=== PATIENT | female | born 1965 | race Caucasian/White ===

== ENCOUNTER 2020-04-21 12:09 | Emergency (ER) | payer OTHER, SELFPAY ==
[2020-04-21 12:15] VITALS: BP 167/76; PULSE 61; RESP 18; TEMP 37; O2SAT 98; BMI 34.8
--- NOTE | 2020-04-21 12:23 | DI.RAD.S_ITS ---
PROCEDURE: XR KNEE LT 3V INDICATIONS: left knee swollen and pain after leaning on it TECHNIQUE: 3 views of the knee were acquired. COMPARISON: None. FINDINGS: Bones: No fractures or dislocations. There is mild osteophytosis. No suspicious bony lesions. Soft tissues: There is a moderate joint effusion. No suspicious soft tissue calcifications. IMPRESSION: 1. No fracture or dislocation. 2. Moderate size joint effusion. Dictated by: Rios Sheets M.D. on 04/21/2020 at 14:41 Approved by: Rios Sheets M.D. on 04/21/2020 at 14:43
--- NOTE | 2020-04-21 12:39 | PC.NURSE ---
pt back from xray, in waiting room
[2020-04-21] MEDS: KETOROLAC 60 MG/2 ML VIAL 30 MG IM (17:36)
[2020-04-21 17:42] VITALS: PULSE 70
[2020-04-21 17:48] VITALS: BP 162/81; PULSE 57; RESP 16; TEMP 37.3; O2SAT 98
--- NOTE | 2020-04-21 20:36 | ED.EXTPRO ---
HPI - Extremity Problem <GIAN Shaver - Last Filed: 04/21/20 20:43> General Chief complaint: Extremity Problem,Nontraumatic Stated complaint: LEFT KNEE INJURY Time Seen by Provider: 04/21/20 16:46 Source: patient Mode of arrival: Family Vehicle Limitations: no limitations History of Present Illness HPI Narrative: The patient is a 54-year-old female with a chief complaint of left knee pain. Started last Friday which was squatting and she felt a pop. She did not fall. She has not taken anything for pain. She saw her PCP this morning, who gave her work note. She did not have an MRI ordered or an x-ray done, so she presents to the emergency department requesting his things. She complains of swelling. She has not taken any of her pain or applied an Jesus wrap. She ambulates into the emergency department. Related Data Previous Rx's Medication Instructions Recorded ketorolac 10 mg PO TID PRN #14 tab 04/21/20 Allergies Allergy/AdvReac Type Severity Reaction Status Date / Time Opioids - Morphine Analogues Allergy Hives Verified 04/21/20 12:23 Review of Systems <GIAN Shaver - Last Filed: 04/21/20 20:43> Review of Systems Narrative: GENERAL: Denies chills, fatigue, malaise, fever, sweats. HEENT: Denies sinus pain, ear pain, sore throat, difficulty swallowing, dizziness. RESPIRATORY: Denies dyspnea, cough, wheezing, hemoptysis, sputum. CARDIOVASCULAR: Denies chest pain, palpitations, orthopnea, edema, GASTROINTESTINAL: Denies nausea, vomiting, abdominal pain, diarrhea, constipation, melena. : Denies dysuria, frequency, incontinence, hematuria, urinary retention. MUSCULOSKELETAL: See HPI SKIN: Denies rash, skin lesions, or other NEUROLOGIC: Denies weakness, headache, numbness, change in speech, confusion, seizures, incoordination. PSYCHIATRIC: No concerning psychosocial issues. 12 point review of systems is negative except for those stated above Patient History <GIAN Shaver - Last Filed: 04/21/20 20:43> Social History Smoking Status: Never smoker Smoking Status: Never smoker alcohol intake frequency: 0-2 drinks per day Substance Use Type: does not use Exam <GIAN Shaver - Last Filed: 04/21/20 20:43> Narrative Exam Narrative: GENERAL: This is a well-nourished, well-developed patient, in no acute distress HEAD: Atraumatic. Normocephalic. No temporal or scalp tenderness. EYES: Pupils equal round and reactive. Extraocular motions intact. No scleral icterus. No injection or drainage. ENT: Nose without bleeding, purulent drainage or septal hematoma. Throat without erythema, tonsillar hypertrophy or exudate. Uvula midline. Airway patent. NECK: Trachea midline. No JVD or lymphadenopathy. Supple, nontender, no meningeal signs. CARDIOVASCULAR: Regular rate and rhythm RESPIRATORY: no cough. No increased respiratory effort. No accessory muscle use. EXTREMITIES: General pain to palpation left knee. Able to weightbear. Able to lift leg off stretcher. Negative varus valgus, catching on Robinson's, negative anterior posterior drawer NEURO: AOx3. SKIN: No rash or erythem on visible skin. No erythema ecchymosis laceration or abrasion noted on left knee Initial Vital Signs Initial Vital Signs: Vital Signs Temperature 98.6 F 04/21/20 12:15 Pulse Rate 61 04/21/20 12:15 Respiratory Rate 18 04/21/20 12:15 Blood Pressure 167/76 H 04/21/20 12:15 Pulse Oximetry 98 04/21/20 12:15 <Vijay Guevara MD - Last Filed: 04/21/20 21:43> Initial Vital Signs Initial Vital Signs: Vital Signs Temperature 98.6 F 04/21/20 12:15 Pulse Rate 61 04/21/20 12:15 Respiratory Rate 18 04/21/20 12:15 Blood Pressure 167/76 H 04/21/20 12:15 Pulse Oximetry 98 04/21/20 12:15 Course <GIAN Shaver - Last Filed: 04/21/20 20:43> Orders Ordered: Discontinued Medications Ketorolac Tromethamine (Toradol) 30 mg IM NOW ONE Stop: 04/21/20 17:05 Last Admin: 04/21/20 17:36 Dose: 30 mg Documented by: ANA LAURA Vital Signs Vital signs: Vital Signs - 8 hr 04/21/20 17:42 04/21/20 17:48 Temperature 99.2 F Pulse Rate 57 L Pulse Rate [Left Dorsalis Pedis] 70 Respiratory Rate 16 Blood Pressure [Right Arm] 162/81 H Pulse Oximetry 98 <Vijay Guevara MD - Last Filed: 04/21/20 21:43> Orders Ordered: Discontinued Medications Ketorolac Tromethamine (Toradol) 30 mg IM NOW ONE Stop: 04/21/20 17:05 Last Admin: 04/21/20 17:36 Dose: 30 mg Documented by: ANA LAURA Vital Signs Vital signs: Vital Signs - 8 hr 04/21/20 17:42 04/21/20 17:48 Temperature 99.2 F Pulse Rate 57 L Pulse Rate [Left Dorsalis Pedis] 70 Respiratory Rate 16 Blood Pressure [Right Arm] 162/81 H Pulse Oximetry 98 MDM - Extremity (Nontraumatic) <GIAN Shaver - Last Filed: 04/21/20 20:43> Imaging Data Extremity x-ray #1: Radiologist's Impression: [place] [address] XRay Report Signed Patient: Keli Dolan RMR#: [id number] : 1965Acct:[id number] Age/Sex: 54 / FDate of Service: 04/21/20 Loc: ED Accession Number: [id number] Procedure: XR knee LT 3V Ordering Provider: Twila Newton PROCEDURE: XR KNEE LT 3V INDICATIONS: left knee swollen and pain after leaning on it TECHNIQUE: 3 views of the knee were acquired. COMPARISON: None. FINDINGS: Bones: No fractures or dislocations. There is mild osteophytosis. No suspicious bony lesions. Soft tissues: There is a moderate joint effusion. No suspicious soft tissue calcifications. IMPRESSION: 1. No fracture or dislocation. 2. Moderate size joint effusion. Dictated by: Rios Sheets M.D. on 04/21/2020 at 14:41 Approved by: Rios Sheets M.D. on 04/21/2020 at 14:43 [facility] Narrative Medical decision making narrative: The patient is a [age]-year-old female who presents with a chief complaint of left knee pain. She is neurovascularly intact, has a negative x-ray. And put her left knee down and felt a tear and pop. This occurred several days ago, [place] was upset that an MRI was not ordered, so she came to the emergency department. I discussed that we are not able to order an MRI for her today, encouraged her to see a primary care provider. Given her exam, she may have a meniscus injury, may benefit from further imaging and or physical therapy or orthopedic referral. She states that she has seen an orthopedist for any pain in this knee for several years. Patient felt much improved after the Toradol injection a prescription was given. Jesus bandage was applied. Encouraged follow-up with primary care provider was patient area scheduled as well as coming back to the emergency department for any acute concerns. Patient has no questions or concerns upon discharge and states understanding return precautions as well as follow-up care. Discharge Plan Departure Patient Disposition: Home Clinical Impression: Acute pain of left knee Discharge Date/Time: 04/21/20 18:04 Instructions: How To Perform RICE (Rest, Ice, Compress, Elevate), DI for Knee Pain Activity Restrictions/Additional Instructions: Thank you for trusting us with your care today As I discussed, your x-ray shows no acute fracture. This does not rule out a soft tissue injury such as a ligament or tendon injury. It is important that you follow up with primary care provider, especially if worsening or no improvement. There can be fractures that did not show up on initial x-ray. You may benefit from an orthopedic referral and or advanced imaging and physical therapy I have given you a prescription of Toradol. This is an NSAID. Do not combine it with other NSAIDs such as Aleve or ibuprofen. I suggest taking it with some food, as it can irritate your stomach. Please come back to emergency department for any acute concerns Prescriptions: New ketorolac 10 mg tablet 10 mg PO TID PRN (Reason: pain) Qty: 14 RF: 0 Referrals: Isabel Mandujano [Non-Staff] -
== END 2020-04-21 18:04 | disposition home or self-care (01) ==
PROVIDERS: Emergency Provider Nurse Practitioner Family
DX: M25.562 Pain in left knee (principal)
CPT/HCPCS: 73562; 96372; 99283; J1885

== ENCOUNTER 2025-05-31 07:10 | Day surgery (SDC) | payer OTHER, SELFPAY ==
[2025-05-31 07:28] VITALS: BP 128/76; PULSE 68; RESP 16; TEMP 36.3; O2SAT 100
[2025-05-31] MEDS: LACTATED RINGERS 1,000 ML 42 ML IV (07:43)
--- NOTE | 2025-05-31 09:01 | PM.HP.IH.1 ---
History of Present Illness History of Present Illness Date Patient Seen: 05/31/25 Time Patient Seen: 09:01 Chief complaint: Dx Colonoscopy w/poss bx Narrative: Keli 59-year-old woman who presents with right quadrant abdominal pain since last September. She had a colonoscopy about 10 years ago. No family history of colon cancer. She denies rectal bleeding. She typically has loose bowel movements daily. [facility] Social History Smoking Status: Never smoker alcohol intake: never Meds Home Medications and Allergies Home Medications ?Medication ?Instructions ?Recorded ?Confirmed ?Type amlodipine 5 mg tablet 5 mg PO DAILY 05/02/25 05/31/25 History ascorbic acid (vitamin C) 1,000 mg 1 g PO DAILY 05/02/25 05/02/25 History capsule bupropion HCl 300 mg 24 hr tablet, 300 mg PO QAM 05/02/25 05/31/25 History extended release cetirizine 10 mg tablet (Allergy 10 mg PO DAILY PRN allergic 05/02/25 05/31/25 History Relief (cetirizine)) symptoms cholecalciferol (vitamin D3) 25 25 mcg PO DAILY 05/02/25 05/02/25 History mcg (1,000 unit) capsule estradiol 1 mg tablet 1 mg PO DAILY 05/02/25 05/31/25 History ezetimibe 10 mg tablet 10 mg PO DAILY 05/02/25 05/31/25 History mecobalamin (vitamin B12) 5,000 5,000 mcg PO DAILY 05/02/25 05/02/25 History mcg chewable tablet fkpmgafzvsti-bbcz-fzehvwen PO 05/02/25 05/02/25 History laoarmmm-tjkdochlt-kjirhhxm 3.5 drp EYE-BOTH 05/02/25 05/02/25 History mg/mL-10,000 unit/mL-0.1% eye drops (Maxitrol) omega 5-oju-tew-fish oil 60 mg-90 1 cap PO DAILY 05/02/25 05/02/25 History mg-500 mg capsule (Fish Oil) testosterone 1.62 % (20.25 mg/1.25 1 packet transdermal DAILY 05/02/25 05/02/25 History gram) transdermal gel packet Allergies Allergy/AdvReac Type Severity Reaction Status Date / Time amoxicillin AdvReac Unknown diarrhea, Verified 05/31/25 07:26 drowsiness, fever, nausea, vomit cephalexin (From Keflex) AdvReac Unknown ITCHING Verified 05/31/25 07:26 codeine AdvReac Unknown Vomiting, Verified 05/31/25 07:26 GI upset diazepam AdvReac Unknown Vomiting, Verified 05/31/25 07:26 GI upset fentanyl AdvReac Unknown hives, Verified 05/31/25 07:26 itching, nausea, vomiting meperidine AdvReac Unknown Hives Verified 05/31/25 07:26 Opioids - Morphine Analogues AdvReac Unknown GI upset, Verified 05/31/25 07:26 hives, itching, nausea, vomiting Sulfa (Sulfonamide AdvReac Unknown Unknown Verified 05/31/25 07:26 Antibiotics) Exam Vital Signs (past 8 hours): - 05/31/25 07:28 05/31/25 07:34 Temperature 97.4 F L Pulse Rate 68 Respiratory Rate 16 Blood Pressure 128/76 Pulse Oximetry 100 Oxygen Delivery Method Room Air Room Air Oxygen Delivery Method Room Air Const General: No acute distress Assessment & Plan Assessment and plan (1) RLQ abdominal pain: Status: Acute Plan Colonoscopy Time-Based Coding :: [TOTAL MINUTES] spent with patient and on the chart (including review of chart, obtaining history, exam, reviewing outside data, placing orders, documenting exam and treatment plan, and counseling patient) on [DATE]. [employer] Document charge(s): No
[2025-05-31 09:28] VITALS: BP 130/66; PULSE 57; RESP 15; TEMP 36.4; O2SAT 98
--- NOTE | 2025-05-31 09:30 | PM.OP.COLON ---
Operative Date/Time/Diagnoses Date of procedure: 05/31/25 Time of procedure: 09:30 Pre-op diagnosis: Colon cancer screening and abdominal pain Post-op diagnosis: same Procedure & Clinicians Study performed: Colonoscopy Same procedure(s) as scheduled: Yes Surgeon: Eliseo Love Anesthesia Type: MAC +/- Procedure Notes Procedure in detail: Surgeon: Eliseo Love MD Anesthesia: Miquel Thompson.Eva Procedure: The patient was brought to the endoscopy suite, placed in left lateral decubitus position. The patient was connected to monitoring devices. A time-out was performed. Sedation was administered. Once the patient was adequately sedated, a digital rectal exam was performed and was normal. The scope was then inserted and advanced to the cecum where the appendiceal orifice was identified and photographed. The scope was then slowly withdrawn over greater than 6 minutes. The mucosa was thoroughly inspected. No abnormalities were found. The scope was retroflexed in the rectum. The scope was straightened and removed. The patient was awakened and brought to recovery. Scope withdrawal time: 9 minutes Sedation time: 15 minutes EBL: 0 Findings: Normal colon Post-procedure Recommendations: Colonoscopy in 10 years Disposition: PACU
[2025-05-31 09:35] VITALS: BP 131/68; PULSE 57; RESP 10; O2SAT 98
[2025-05-31 09:40] VITALS: BP 135/73; PULSE 56; RESP 16; O2SAT 99
[2025-05-31 10:15] VITALS: BP 110/70; PULSE 56; RESP 17; O2SAT 99
== END 2025-05-31 10:25 | disposition home or self-care (01) ==
PROVIDERS: PCP Family Medicine; Referring Provider Surgery; Visit Provider Surgery
PROC: 0DJD8ZZ Inspection of Lower Intestinal Tract, Via Natural or Artificial Opening Endoscopic (ICD-10-PCS; CPT 45378; principal; 2025-05-31 08:30)
DX: R10.9 Unspecified abdominal pain (principal)
CPT/HCPCS: 45378; J2704